=== PATIENT | male | born 1965 | race Caucasian/White ===

== ENCOUNTER → 2021-01-10 06:50 | Outpatient (CLI) | payer OTHER, SELFPAY ==
--- NOTE | 2021-01-10 | DI.MRI.S_ITS ---
PROCEDURE: MR SHOULDER RT WO CON INDICATIONS: Pain in right shoulder TECHNIQUE: Noncontrast oblique coronal T2 fast spin echo with fat saturation, oblique sagittal T1 spin echo and T2 fast spin echo with fat saturation, axial T1 spin echo and T2 fast spin echo with fat saturation through the shoulder. COMPARISON: None. FINDINGS: Image quality: Excellent. Rotator cuff: Tendinosis and low to moderate grade articular and bursal surface partial thickness tear involving distal supraspinatus at its insertion on the humeral head is seen extending to musculotendinous junction. Distal infraspinatus tendinosis and low-grade articular and bursal surface partial-thickness tear is also seen. Distal subscapularis tendinosis and low-grade intrasubstance partial-thickness tear is noted. No full-thickness rotator cuff tendon rupture. Sagittal images demonstrate mild supraspinatus muscle atrophy. Bones and bursae: No bone marrow contusions or fractures. Moderate acromioclavicular joint osteoarthritic changes are seen with downward osteophyte formation depressing the musculotendinous junction of supraspinatus. Mild to moderate glenohumeral joint osteoarthritis is also seen. There is small to moderate amount of joint effusion and subacromial subdeltoid bursal fluid. No gross intra-articular loose body. Capsule and soft tissues: There is fraying of superior anterior labrum at 12 to 2 o'clock position suggestive of superior anterior labral tear. Subtle inferior labral tear at the 6 to 7 o'clock position is also seen with tiny adjacent perilabral cyst measures 5 millimeter in size. The long head of the biceps tendinosis and low to moderate grade partial-thickness tear is seen. The rotator interval appears normal, without fibrosis. The coracohumeral ligament is normal in thickness. IMPRESSION: 1. Tendinosis and low to moderate grade articular and bursal surface partial thickness tear involving distal supraspinatus and infraspinatus extending to musculotendinous junction. Tendinosis and low-grade intrasubstance partial-thickness tear involving distal subscapularis. Mild supraspinatus muscle atrophy. 2. Moderate acromioclavicular joint osteoarthritis. Mild to moderate glenohumeral joint osteoarthritis. Small to moderate amount of joint fluid and subacromial subdeltoid bursal fluid. 3. Suggestion of superior anterior labral tear at 12 to 2 o'clock position and posterior inferior labral tear at 6 to 7 o'clock position as above. 4. Tendinosis and low to moderate grade intrasubstance partial-thickness tear involving proximal intra-articular portion of long head of biceps. Dictated by: Adis Montana M.D. on 01/10/2021 at 10:17 Approved by: Adis Montana M.D. on 01/10/2021 at 10:20
== END ==
PROVIDERS: Referring Provider Orthopaedic Surgery; Visit Provider Orthopaedic Surgery
DX: M25.511 Pain in right shoulder (principal); S46.011A Strain of muscle(s) and tendon(s) of the rotator cuff of right shoulder, initial encounter; M19.011 Primary osteoarthritis, right shoulder
CPT/HCPCS: 73221